=== PATIENT | female | born 1935 | race Caucasian/White ===

== ENCOUNTER 2021-06-09 01:19 | Outpatient (CLI) | payer MEDICARE, OTHER, SELFPAY ==
[2021-06-09 12:35] LABS: Source Nasal/Nares
[2021-06-09 15:22] LABS: COVID-19 PCR Negative (Negative)
== END 2021-06-09 01:20 | disposition home or self-care (01) ==
LOC: LBO 01:19
PROVIDERS: PCP Internal Medicine; Visit Provider Ophthalmology
DX: Z20.822 Contact with and (suspected) exposure to COVID-19 (principal); Z01.818 Encounter for other preprocedural examination
CPT/HCPCS: 87635

== ENCOUNTER 2021-06-11 09:19 | Day surgery (SDC) | payer MEDICARE, OTHER, SELFPAY ==
[2021-06-11 09:45] VITALS: BP 139/70; PULSE 90; RESP 18; TEMP 36.4; O2SAT 99
[2021-06-11] MEDS: Tropicam./Phenyleph. (1/2.5%) 5 ML BTL OD ×3 (10:21→10:28)
--- NOTE | 2021-06-11 11:12 | ANES.PREOP_ITS ---
General Info Date of Service Date Performed: 06/11/21 Height: 5 ft 2 in Weight: 76.7 kg Body Mass Index (BMI): 30.9 Surgical Procedure: Operation Date: 06/11/21 12:40 Proposed Procedures Side Surgeon p Cataract Extraction with IOL Implant Right Sanchez Briggs MD Meds Allergies and Home Medications Allergies Allergy/AdvReac Type Severity Reaction Status Date / Time Penicillins Allergy Intermediate Other (See Unverified 06/11/21 10:03 Comment) Sulfa (Sulfonamide Allergy Intermediate Other (See Unverified 06/11/21 10:03 Antibiotics) Comment) iodine Allergy Unknown Unknown Unverified 06/11/21 10:03 lisinopril Allergy Unknown Unknown Unverified 06/11/21 10:03 meloxicam Allergy Unknown Unknown Unverified 06/11/21 10:03 Lkywzrh-FMM-PtU Reductase Allergy Unknown Unknown Unverified 06/11/21 10:03 Inhibitor [Pbftmmo-Gxq-Aia Reductase Inhibitor] Home Medication Medication Instructions Recorded aspirin [Low Dose Aspirin Ec] 81 mg PO DAILY tab-cap NS 09/23/16 furosemide 20 mg PO BID tab-cap NS 09/23/16 metoprolol tartrate 100 mg PO BID tab-cap NS 09/23/16 omeprazole 20 mg PO DAILY tab-cap NS 09/23/16 sertraline 50 mg PO PRN NS 09/23/16 Lactobacillus acidophilus 10 cell PO DAILY 06/09/21 [Probiotic] albuterol 90 mcg INHALATION Q4H 06/09/21 apixaban [Eliquis] 5 mg PO BID 06/09/21 cholecalciferol (vitamin D3) 50 mcg PO DAILY 06/09/21 [Vitamin D3] cranberry 500 mg PO DAILY 06/09/21 digoxin 62.5 mcg PO DAILY 06/09/21 estradiol 1 appful VAGINAL DIRECTED 06/09/21 famotidine 20 mg PO BID 06/09/21 fenofibrate micronized 134 mg PO DAILY 06/09/21 fluticasone propionate 1 spray INTRANASAL DAILY 06/09/21 fluticasone propionate [Flovent 1 puff INHALATION BID 06/09/21 HFA] letrozole 2.5 mg PO DAILY 06/09/21 levothyroxine 125 mcg PO DAILY 06/09/21 loratadine 10 mg PO DAILY 06/09/21 meclizine 25 mg PO TID 06/09/21 ondansetron HCl 4 mg PO BID PRN 06/09/21 pyridoxine (vitamin B6) [Vitamin 100 mg PO DAILY 06/09/21 B-6] ropinirole 0.5 mg PO TID 06/09/21 spironolactone 50 mg PO DAILY 06/09/21 tiotropium bromide [Spiriva 2 puff INHALATION DAILY 06/09/21 Respimat] vitamins A,C,E-rkqq-nldflt 1 cap PO BID 06/09/21 [PreserVision AREDS] Current Visit Medications: Current Medications Generic Name Dose Route Start Last Admin Trade Name Freq PRN Reason Stop Dose Admin Acetaminophen 1,000 mg 06/11/21 06:00 Acetaminophen 500 Mg Tab PO Q4H PRN PRN Miscellaneous Medication 0 ml 06/11/21 06:00 Prednisolone 1%, Moxifloxacin 0.5%, Nepafenac 0.1% 5ml Btl OD DIRECTED NATALIE Miscellaneous Medication 0 ml 06/11/21 06:00 06/11/21 10:28 Tropicam./Phenyleph. (1/2.5%) 5 Ml Btl OD 1 drp DIRECTED NATALIE Administration Tetracaine HCl 0 ml 06/11/21 06:00 Tetracaine 0.5% 4 Ml Btl OD DIRECTED NATALIE PFSH Active Problems Active Problems: Problem Status Onset Code Nuclear sclerotic cataract of right eye H25.11 Cortical cataract of right eye H26.9 Medical History Medical History Anxiety Atrial fibrillation Atrophic vaginitis Carpal tunnel syndrome CHF (congestive heart failure) Chronic post-traumatic stress disorder (PTSD) Chronic rhinitis CKD (chronic kidney disease) COPD (chronic obstructive pulmonary disease) Coronary atherosclerosis Diarrhea Dysphagia Edema ESR raised Female stress incontinence GERD (gastroesophageal reflux disease) Herpes zoster Hx of Clostridium difficile infection Hypercholesteremia Hypertensive disorder Hypothyroidism Macrocytosis Malignant tumor of breast Mitral valve regurgitation moderate last echo 08/2019 EF 64%, mild LVH. Pt. states she f/u with Dr. Bolanos Neuropathy due to type 2 diabetes mellitus GUERLINE (obstructive sleep apnea) Osteoarthritis Painless rectal bleeding Peptic ulcer Polyp of colon Posterior rhinorrhea Recurrent urinary tract infection RLS (restless legs syndrome) Shoulder pain Type 2 diabetes mellitus Venous insufficiency of leg Surgical History Surgical History H/O parathyroidectomy History of vascular surgery Hx of cardiac catheterization 2017 Hx of cholecystectomy Hx of dilation and curettage Hx of hernia repair Hx of joint replacement (L) GAL Hx of mastectomy Tobacco Smoking/Tobacco Use Status: Former Tobacco Use Alcohol Alcohol Intake: current Alcohol intake frequency: a few times a month Alcohol type: hard liquor Substance Use Substance use: Never Substance use type: does not use Vital Signs and Lab Results Vital Signs Most Recent Vital Signs in EMR: Most Recent Vital Signs Temp Pulse Resp BP Pulse Ox 36.4 C L 90 18 139/70 99 06/11/21 09:45 06/11/21 09:45 06/11/21 09:45 06/11/21 09:45 06/11/21 09:45 Lab Results Blood Type / Crossmatch: No Data to Display Complete Blood Count: No Data to Display Complete Metabolic Panel: No Data to Display Liver Function Panel: No Data to Display Coagulation Panel: No Data to Display Cardiac Panel: No Data to Display Arterial Blood Gas: No Data to Display Venous Blood Gas: No Data to Display Pancreas Panel: No Data to Display Thyroid Panel: No Data to Display Infectious Disease: Coronavirus (COVID-19)(PCR) Negative (Negative) 06/09/21 09:15 06/09/21 Coronavirus 2019 Source Nasal/Nares 06/09/21 09:15 06/09/21 Blood Cultures: 2 No Data to Display Toxicology Panel: No Data to Display Anesthesia Assessment and Plan Anesthesia History Personal History: No History of Anesthesia Complications Family History: No Family History of Anesthesia Complications Exercise Tolerance Exercise Tolerance: Metabolic Equivalents>4 Pertinent Negatives Pertinent Negatives: No Major Pulmonary Symptoms or Complaints Cardiac & Pulmonary Exam Cardiac Exam: Normal S1/S2 Heart Sounds Pulmonary Exam: Clear Bilateral Breath Sounds Implantable Cardiac Device Does patient have a Pacemaker or an ICD?: No Airway Exam Known Difficult Airway: No Mallampati Class: 2 Mouth Opening: Normal (> 3cm) Thyromental Distance: Less than 3 cm Neck Range of Motion: Full ROM Neck Circumference: Normal Teeth Condition: Edentulous ASA Classification ASA Score: ASA 3 Emergency Case?: No NPO Status NPO Status: NPO Clears >2 hours, Solids >8 hours Anesthesia Plan Resuscitation Status: Full Code Anesthesia Technique: MAC Anesthesia Airway Planned: Natural Airway Monitors Used: Standard Monitors
[2021-06-11] MEDS: Povidone-Iodine Ophth 30 ML BTL (11:42)
[2021-06-11] MEDS: Lidocaine 2% Jelly 6 ML SYR (11:42)
[2021-06-11] MEDS: Tetracaine 0.5% 4 ML BTL OD (11:42)
[2021-06-11 11:44] VITALS: BMI 30.9
[2021-06-11] MEDS: Duovisc Viscoelastic System EACH 1 EACH (11:55)
[2021-06-11] MEDS: Balanced Salt Soln.-PLUS 500 ML BAG (11:55)
--- NOTE | 2021-06-11 12:06 | W.PM.DSUDISC ---
Discharge Plan Disposition Patient Disposition: HOME Condition: Good Discharge Details Reason For Visit: CATARACT Attending Provider: Sanchez Briggs Primary Care Provider: Glendy Gonzales Home Meds and New Rx's Prescriptions: No Action furosemide 40 MG tablet 20 mg PO BID RF: 0 aspirin [Aspirin Low Dose] 81 MG tablet,delayed release (DR/EC) 81 mg PO DAILY RF: 0 metoprolol tartrate 50 MG tablet 100 mg PO BID RF: 0 omeprazole 20 MG capsule,delayed release(DR/EC) 20 mg PO DAILY RF: 0 sertraline 50 MG tablet 50 mg PO PRN RF: 0 ondansetron HCl 4 mg tablet 4 mg PO BID PRNRF: 0 fenofibrate micronized 134 mg capsule 134 mg PO DAILY RF: 0 famotidine 20 mg tablet 20 mg PO BID RF: 0 meclizine 25 mg Tablet 25 mg PO TID RF: 0 levothyroxine 125 mcg Tablet 125 mcg PO DAILY RF: 0 ropinirole 0.5 mg tablet 0.5 mg PO TID RF: 0 digoxin 125 mcg (0.125 mg) tablet 62.5 mcg PO DAILY RF: 0 pyridoxine (vitamin B6) [Vitamin B-6] 100 mg Tablet 100 mg PO DAILY RF: 0 albuterol 90 mcg/actuation Aerosol 90 mcg INHALATION Q4H RF: 0 estradiol 0.01 % (0.1 mg/gram) cream 1 appful VAGINAL DIRECTED RF: 0 letrozole 2.5 mg tablet 2.5 mg PO DAILY RF: 0 fluticasone propionate 50 mcg/actuation [place],Suspension 1 spray INTRANASAL DAILY RF: 0 loratadine 10 mg Tablet 10 mg PO DAILY RF: 0 cranberry 500 mg Capsule 500 mg PO DAILY RF: 0 Flovent HFA 110 mcg/actuation HFA aerosol inhaler 1 puff INHALATION BID RF: 0 spironolactone 50 mg tablet 50 mg PO DAILY RF: 0 PreserVision AREDS [id number] Capsule 1 cap PO BID RF: 0 cholecalciferol (vitamin D3) [Vitamin D3] 50 mcg (2,000 unit) Capsule 50 mcg PO DAILY RF: 0 Spiriva Respimat 2.5 mcg/actuation Mist 2 puff INHALATION DAILY RF: 0 Probiotic 10 billion cell Capsule 10 cell PO DAILY RF: 0 Eliquis 5 mg tablet 5 mg PO BID RF: 0 Discharge Instructions Stand Alone Forms: Post-op Topical Cataract, Leon Culver (DSU) Discharge Orders Discharge Orders: Discharge Order (Routine); Ordered 06/11/21 Ordered By: Sanchez Briggs DS: Diagnosis Discharge Diagnosis (1) Nuclear sclerotic cataract of right eye: Status: Resolved (2) Cortical cataract of right eye: Status: Resolved
--- NOTE | 2021-06-11 12:27 | W.PM.OP ---
Date of service: 06/11/21 Time of Service: 12:27 Operative Note Operative Note DATE OF PROCEDURE: 06/11/21 PRE-OP DIAGNOSIS: Nuclear/cortical cataract, right eye POST-OP DIAGNOSIS: same PROCEDURE: Cataract extraction using phacoemulsification with intraocular lens implant, right eye SURGEON: Sanchez Briggs ANESTHESIA TYPE: Local By Surgeon and MAC Refer to Anesthesia Record ESTIMATED BLOOD LOSS: 0 PATHOLOGY: none sent COMPLICATIONS: None Patient was transported to: same day Patient's condition: stable Implants: Jan & Jan/DARRION Tecnis [id number] Indications: Progressive visual loss due to cataract, right eye Procedure Description: CATARACT SURGERY OPERATIVE REPORT PREOPERATIVE DIAGNOSIS: 1. Nuclear/cortical cataract, right eye POSTOPERATIVE DIAGNOSIS: Same OPERATION: 1. Cataract extraction using phacoemulsification with posterior chamber intraocular lens implant, right eye. IOL: IOL Utility Pipe Layer/Model: Jan & Jan / DARRION Tecnis [id number] IOL Power: + 20.5 diopters IOL Serial Number: [id number] Optic Diameter: 6.0mm Haptic/Overall Diameter: 13.0mm PHACO INFO: [employer] Microurion Vision System with OZil and Active Fluidics Cumulative Dispersed Energy (CDE): 9.48 seconds SURGEON: Sanchez Briggs MD, THUY ANESTHESIA: Monitored Anesthesia Care (MAC), with local sub-tenon's anesthetic infiltration COMPLICATIONS: None SPECIMENS: None INDICATIONS FOR PROCEDURE: The patient is an 85-year-old lady with history of diminished visual acuity in her right eye secondary to the development of nuclear and cortical cataract. She is significantly symptomatic that she desires cataract surgery and attempt to improve and maximize her vision. PROCEDURE: The correct surgical eye was identified and marked as the right eye and the pupil was dilated in the preoperative area using mydriatics and cycloplegics. The dilated pupil size was 7.0 mm. Oral sedation was administered in the form of an Imprimis MKO Melt (midazolam 3mg/ketamine 25mg/ondansetron 2mg). The patient was brought to the operating room where cardiopulmonary monitoring was instituted and surgical time-out was performed, confirming the correct operative eye and IOL power. Topical anesthesia was administered and ophthalmic povidone-iodine 5% was instilled into the conjunctival fornices. Lidocaine gel was applied to the cornea and the ava-ocular area was prepped with Betadine 10% solution and draped in the usual sterile fashion for intraocular surgery, including an aperture drape. A Tegaderm transparent film dressing was cut in half and used to cover the lashes and lid margins. Care was taken to sequester the lashes and lid margins under the Tegaderm dressing. A lid speculum was placed between the lids of the operative eye and the Jalen-Roxy operating microscope was maneuvered into position. Jasmine scissors were then used to make a conjunctival buttonhole approximately 6mm posterior to the limbus in the inferonasal quadrant. Blunt dissection was carried out to expose bare sclera, and a blunt-tipped sub-tenon?s anesthesia cannula was introduced and passed posteriorly along the globe where non-preserved plain lidocaine was injected into posterior sub-Tenon?s space. A sideport knife was used to make a paracentesis port inferotemporally. Intraocular phenylephrine/lidocaine was injected into the anterior chamber. The anterior chamber was filled with viscoelastic. A 2.4mm keratome knife was used to create a half-thickness groove at the limbus and then to construct a three-plane near-clear corneal tunnel extending 2.0mm into clear cornea superiortemporally. A flap was raised on the anterior capsule and capsulorhexis forceps were used to complete a continuous curvilinear capsulorhexis of 5.0 mm. Balanced salt solution was then used to perform cortical cleaving hydrodissection and nuclear hydrodelineation until the lens could be freely rotated within the capsular bag. The lens nucleus was then disassembled and removed within the capsular bag and iris plane using phacoemulsification. Residual cortical material was removed using the I/A handpiece. The posterior capsule was carefully polished to remove as much residual lens epithelial cells as safely possible. The capsular bag was then inflated and the anterior chamber deepened with viscoelastic. The lens implant described above was inserted into the capsular bag using the DARRION [place] Injector. A Kuglen hook was used to dial the IOL into position. Residual viscoelastic was then removed first from posterior to the IOL, then from the anterior chamber using the I/A handpiece. The lens implant was noted to center nicely within the capsular bag. The incisions were stromally hydrated, and the anterior chamber was reformed using BSS. Then 0.5cc of moxifloxacin 1.0mg/ml were injected into the capsular bag and anterior chamber. The incisions were checked with a Weck spear and found to be secure. Several drops of ophthalmic povidone-iodine 5% were then applied to the eye followed by two drops of Imprimis combination prednisolone/moxifloxacin/nepafenac solution. The drapes were removed and a clear plastic protective eye shield was placed over the eye. The patient was then returned to Same Day Surgery in stable condition.
[2021-06-11 12:38] VITALS: BP 112/86; PULSE 87; RESP 16; TEMP 36.4; O2SAT 98
--- NOTE | 2021-06-11 14:04 | W.ANESPOSTOP ---
Postoperative Evaluation Date, Time and Location Date Performed: 06/11/21 Time Performed: 12:40 Patient Location: Day Surgery Unit Vital Signs Most Recent Imported Vital Signs: Most Recent Vital Signs Temp Pulse Resp BP Pulse Ox 36.4 C L 87 16 112/86 98 06/11/21 12:38 06/11/21 12:38 06/11/21 12:38 06/11/21 12:38 06/11/21 12:38 Pain Score Most Recent Pain Score: Most Recent Pain Score Pain Level 0 06/11/21 12:38 Assessment Mental Status: Awake (Alert & Oriented to Patient Baseline) Airway and Respiratory Function: Patent airway with normal (patient baseline) respiratory exam Cardiovascular Function: Hemodynamically Stable Hydration Status: Adequately Hydrated Nausea & Vomiting: No Nausea or Vomiting Pain: Pt. Denies Any Pain Peripheral Nerve Block: Patient did not receive a nerve block
== END 2021-06-11 12:38 | disposition home or self-care (01) ==
PROVIDERS: PCP Internal Medicine; Visit Provider Ophthalmology
PROC: (CPT 66984; principal; 2021-06-11 12:30)
DX: H25.11 Age-related nuclear cataract, right eye (principal); E11.22 Type 2 diabetes mellitus with diabetic chronic kidney disease; I87.2 Venous insufficiency (chronic) (peripheral); N18.9 Chronic kidney disease, unspecified; I13.0 Hypertensive heart and chronic kidney disease with heart failure and stage 1 through stage 4 chronic kidney disease, or unspecified chronic kidney disease; I50.9 Heart failure, unspecified
CPT/HCPCS: 66984; V2632

== ENCOUNTER 2021-06-22 10:38 | Outpatient (CLI) | payer MEDICARE, OTHER, SELFPAY ==
[2021-06-22 12:03] LABS: Source Nasal/Nares
[2021-06-22 19:15] LABS: COVID-19 PCR Negative (Negative)
== END 2021-06-22 10:39 | disposition home or self-care (01) ==
PROVIDERS: PCP Internal Medicine; Visit Provider Ophthalmology
DX: Z20.822 Contact with and (suspected) exposure to COVID-19 (principal); Z01.818 Encounter for other preprocedural examination
CPT/HCPCS: 87635

== ENCOUNTER 2021-06-25 10:18 | Day surgery (SDC) | payer MEDICARE, OTHER, SELFPAY ==
[2021-06-25 10:36] VITALS: BP 129/50; PULSE 103; RESP 20; TEMP 36.6; O2SAT 100
[2021-06-25] MEDS: Tropicam./Phenyleph. (1/2.5%) 5 ML BTL OS ×3 (11:07→11:23)
--- NOTE | 2021-06-25 12:10 | ANES.PREOP_ITS ---
General Info Date of Service Date Performed: 06/25/21 Height: 5 ft 2 in Weight: 77.4 kg Body Mass Index (BMI): 31.1 Surgical Procedure: Operation Date: 06/25/21 12:10 Proposed Procedure Side Surgeon p Cataract Extraction with IOL Implant Left Sanchez Briggs MD Meds Allergies and Home Medications Allergies Allergy/AdvReac Type Severity Reaction Status Date / Time Penicillins Allergy Intermediate Other (See Verified 06/25/21 10:55 Comment) Sulfa (Sulfonamide Allergy Intermediate Other (See Verified 06/25/21 10:55 Antibiotics) Comment) iodine Allergy Unknown Unknown Verified 06/25/21 10:55 lisinopril Allergy Unknown Unknown Verified 06/25/21 11:06 meloxicam Allergy Unknown Unknown Verified 06/25/21 10:55 Vshgvjj-CCU-LvV Reductase Allergy Unknown Unknown Verified 06/25/21 10:55 Inhibitor [Keyvlkc-Ici-Llc Reductase Inhibitor] Home Medication Medication Instructions Recorded furosemide 40 mg tablet 20 mg PO BID tab-cap NS 09/23/16 metoprolol tartrate 50 mg tablet 100 mg PO BID tab-cap NS 09/23/16 omeprazole 20 mg capsule,delayed 20 mg PO DAILY tab-cap NS 09/23/16 release sertraline 50 mg tablet 50 mg PO PRN NS 09/23/16 Lactobacillus acidophilus 10 10 cell PO DAILY 06/09/21 billion cell capsule (Probiotic) albuterol 90 mcg/actuation aerosol 90 mcg INHALATION Q4H 06/09/21 inhaler apixaban 5 mg tablet (Eliquis) 5 mg PO BID 06/09/21 cholecalciferol (vitamin D3) 50 50 mcg PO DAILY 06/09/21 mcg (2,000 unit) capsule (Vitamin D3) cranberry 500 mg capsule 500 mg PO DAILY 06/09/21 digoxin 125 mcg (0.125 mg) tablet 62.5 mcg PO DAILY 06/09/21 estradiol 1 appful VAGINAL DIRECTED 06/09/21 famotidine 20 mg tablet 20 mg PO BID 06/09/21 fenofibrate micronized 134 mg 134 mg PO DAILY 06/09/21 capsule fluticasone propionate 110 1 puff INHALATION BID 06/09/21 mcg/actuation HFA aerosol inhaler (Flovent HFA) fluticasone propionate 50 1 spray INTRANASAL DAILY 06/09/21 mcg/actuation nasal spray,suspension letrozole 2.5 mg tablet 2.5 mg PO DAILY 06/09/21 levothyroxine 125 mcg tablet 125 mcg PO DAILY 06/09/21 loratadine 10 mg tablet 10 mg PO DAILY 06/09/21 meclizine 25 mg tablet 25 mg PO TID 06/09/21 ondansetron HCl 4 mg tablet 4 mg PO BID PRN 06/09/21 pyridoxine (vitamin B6) 100 mg 100 mg PO DAILY 06/09/21 tablet (Vitamin B-6) ropinirole 0.5 mg tablet 0.5 mg PO TID 06/09/21 spironolactone 50 mg tablet 50 mg PO DAILY 06/09/21 tiotropium bromide 2.5 2 puff INHALATION DAILY 06/09/21 mcg/actuation mist for inhalation (Spiriva Respimat) vitamins A,C,D-wylp-qowkrh 14,320 1 cap PO BID 06/09/21 unit-226 mg-200 unit capsule (PreserVision AREDS) Current Visit Medications: Current Medications Generic Name Dose Route Start Last Admin Trade Name Freq PRN Reason Stop Dose Admin Acetaminophen 1,000 mg 06/25/21 06:00 Acetaminophen 500 Mg Tab PO Q4H PRN PRN Miscellaneous Medication 0 ml 06/25/21 06:00 Prednisolone 1%, Moxifloxacin 0.5%, Nepafenac 0.1% 5ml Btl OS DIRECTED [facility] Miscellaneous Medication 0 ml 06/25/21 06:00 06/25/21 11:23 Tropicam./Phenyleph. (1/2.5%) 5 Ml Btl OS 1 drp DIRECTED NATALIE Administration Tetracaine HCl 0 ml 06/25/21 06:00 Tetracaine 0.5% 4 Ml Btl OS DIRECTED [facility] PFSH Active Problems Active Problems: Problem Status Onset Code Nuclear sclerotic cataract of right eye H25.11 Cortical cataract of right eye H26.9 Medical History Medical History Anxiety Atrial fibrillation Atrophic vaginitis Carpal tunnel syndrome CHF (congestive heart failure) Chronic post-traumatic stress disorder (PTSD) Chronic rhinitis CKD (chronic kidney disease) COPD (chronic obstructive pulmonary disease) Coronary atherosclerosis Diarrhea Dysphagia Edema ESR raised Female stress incontinence GERD (gastroesophageal reflux disease) Herpes zoster Hx of Clostridium difficile infection Hypercholesteremia Hypertensive disorder Hypothyroidism Macrocytosis Malignant tumor of breast Mitral valve regurgitation moderate last echo 08/2019 EF 64%, mild LVH. Pt. states she f/u with Dr. Bolanos Neuropathy due to type 2 diabetes mellitus GUERLINE (obstructive sleep apnea) Osteoarthritis Painless rectal bleeding Peptic ulcer Polyp of colon Posterior rhinorrhea Recurrent urinary tract infection RLS (restless legs syndrome) Shoulder pain Type 2 diabetes mellitus Venous insufficiency of leg Surgical History Surgical History H/O parathyroidectomy History of vascular surgery Hx of cardiac catheterization 2017 Hx of cholecystectomy Hx of dilation and curettage Hx of hernia repair Hx of joint replacement (L) GAL Hx of mastectomy Tobacco Smoking/Tobacco Use Status: Former Tobacco Use Alcohol Alcohol Intake: current Alcohol intake frequency: a few times a month Alcohol type: hard liquor Substance Use Substance use: Never Substance use type: does not use Vital Signs and Lab Results Vital Signs Most Recent Vital Signs in EMR: Most Recent Vital Signs Temp Pulse Resp BP Pulse Ox 36.6 C 103 H 20 129/50 L 100 06/25/21 10:36 06/25/21 10:36 06/25/21 10:36 06/25/21 10:36 06/25/21 10:36 Point of Care Results Point of Care Results: Finger Stick Blood Glucose 107 06/25/21 11:23 Lab Results Blood Type / Crossmatch: No Data to Display Complete Blood Count: No Data to Display Complete Metabolic Panel: No Data to Display Liver Function Panel: No Data to Display Coagulation Panel: No Data to Display Cardiac Panel: No Data to Display Arterial Blood Gas: No Data to Display Venous Blood Gas: No Data to Display Pancreas Panel: No Data to Display Thyroid Panel: No Data to Display Infectious Disease: Coronavirus (COVID-19)(PCR) Negative (Negative) 06/22/21 10:35 06/22/21 Coronavirus 2019 Source Nasal/Nares 06/22/21 10:35 06/22/21 Blood Cultures: No Data to Display Toxicology Panel: No Data to Display Imaging and Studies Imaging and Studies Study information below may be from another EMR and interpreted by another provider. Please see original notes in EMR for more complete details. [place]ch[place]ogram [place] [facility] [place] Mild [place]/TR/MO, Moderate MR. Pulmonary Artery moderatel ydilated at 2.6cms. Grade II Diastolic dysfunction. Anesthesia Assessment and Plan Anesthesia History Personal History: No History of Anesthesia Complications Family History: No Family History of Anesthesia Complications Exercise Tolerance Exercise Tolerance: Metabolic Equivalents>4 Pertinent Negatives Pertinent Negatives: No Symptoms of GERD Cardiac & Pulmonary Exam Cardiac Exam: Normal S1/S2 Heart Sounds Pulmonary Exam: Clear Bilateral Breath Sounds Implantable Cardiac Device Does patient have a Pacemaker or an ICD?: No Airway Exam Known Difficult Airway: No Mallampati Class: 2 Mouth Opening: Normal (> 3cm) Thyromental Distance: Less than 3 cm Neck Range of Motion: Full ROM Neck Circumference: Normal Teeth Condition: Edentulous ASA Classification ASA Score: ASA 3 Emergency Case?: No NPO Status NPO Status: NPO Clears >2 hours, Solids >8 hours Anesthesia Plan Resuscitation Status: Full Code Anesthesia Technique: MAC Anesthesia Airway Planned: Natural Airway Monitors Used: Standard Monitors
[2021-06-25] MEDS: Tetracaine 0.5% 4 ML BTL OS (12:22)
[2021-06-25] MEDS: Lidocaine 2% Jelly 6 ML SYR (12:23)
[2021-06-25 12:29] VITALS: BMI 31.1
[2021-06-25] MEDS: Duovisc Viscoelastic System EACH 1 EACH (12:33)
[2021-06-25] MEDS: Balanced Salt Soln.-PLUS 500 ML BAG (12:33)
[2021-06-25] MEDS: Povidone-Iodine Ophth 30 ML BTL (12:36)
[2021-06-25 12:49] VITALS: BP 128/64; PULSE 64; RESP 16; TEMP 36.5; O2SAT 98
--- NOTE | 2021-06-25 12:51 | PDOC.DSDIS_ITS ---
Discharge Plan Disposition Patient Disposition: HOME Condition: Good Discharge Details Attending Provider: Sanchez Briggs Primary Care Provider: Glendy Gonzales Meds and New Rx's Prescriptions: No Action furosemide 40 MG tablet 20 mg PO BID 0RF Rx Instructions: every morning and after lunch as needed for CHF symptoms metoprolol tartrate 50 MG tablet 100 mg PO BID 0RF omeprazole 20 MG capsule,delayed release(DR/EC) 20 mg PO DAILY 0RF sertraline 50 MG tablet 50 mg PO PRN 0RF ondansetron HCl 4 mg tablet 4 mg PO BID PRN0RF Label Comments: TAKE ONE TABLET BY MOUTH TWICE A DAY NEEDED fenofibrate micronized 134 mg capsule 134 mg PO DAILY 0RF Label Comments: TAKE ONE CAPSULE BY MOUTH EVERY DAY famotidine 20 mg tablet 20 mg PO BID 0RF Label Comments: TAKE ONE TABLET BY MOUTH TWICE A DAY meclizine 25 mg Tablet 25 mg PO TID 0RF levothyroxine 125 mcg Tablet 125 mcg PO DAILY 0RF ropinirole 0.5 mg tablet 0.5 mg PO TID 0RF Label Comments: TAKE ONE TABLET BY MOUTH THREE TIMES A DAY FOR RESTLESS LEGS SYNDROME digoxin 125 mcg (0.125 mg) tablet 62.5 mcg PO DAILY 0RF Label Comments: TAKE ONE AND ONE-HALF TABLETS BY MOUTH EVERY DAY pyridoxine (vitamin B6) [Vitamin B-6] 100 mg Tablet 100 mg PO DAILY 0RF albuterol 90 mcg/actuation Aerosol 90 mcg INHALATION Q4H 0RF Rx Instructions: 2 puff q4h prn estradiol 0.01 % (0.1 mg/gram) cream 1 appful VAGINAL DIRECTED 0RF Label Comments: USE ONE APPLICATORFUL VAGINALLY DIRECTED THREE TIMES PER WEEK Rx Instructions: 3x weekly letrozole 2.5 mg tablet 2.5 mg PO DAILY 0RF Label Comments: TAKE ONE TABLET BY MOUTH EVERY DAY fluticasone propionate 50 mcg/actuation [place],Suspension 1 spray INTRANASAL DAILY 0RF loratadine 10 mg Tablet 10 mg PO DAILY 0RF cranberry 500 mg Capsule 500 mg PO DAILY 0RF Flovent HFA 110 mcg/actuation HFA aerosol inhaler 1 puff INHALATION BID 0RF Label Comments: INHALE ONE PUFF BY MOUTH TWICE A DAY spironolactone 50 mg tablet 50 mg PO DAILY 0RF Label Comments: TAKE ONE TABLET BY MOUTH EVERY MORNING PreserVision AREDS [id number] Capsule 1 cap PO BID 0RF cholecalciferol (vitamin D3) [Vitamin D3] 50 mcg (2,000 unit) Capsule 50 mcg PO DAILY 0RF Spiriva Respimat 2.5 mcg/actuation Mist 2 puff INHALATION DAILY 0RF Probiotic 10 billion cell Capsule 10 cell PO DAILY 0RF Eliquis 5 mg tablet 5 mg PO BID 0RF Label Comments: TAKE ONE TABLET BY MOUTH TWICE A DAY Discharge Instructions Stand Alone Forms: Post-op Topical Cataract, Leon Culver (DSU) Discharge Orders Discharge Orders: Discharge Order (Routine); Ordered 06/25/21 Ordered By: Sanchez Briggs DS: Diagnosis Discharge Diagnosis (1) Cortical cataract of left eye: Status: Resolved (2) Nuclear sclerotic cataract of left eye: Status: Resolved
--- NOTE | 2021-06-25 12:53 | W.PM.OP ---
Date of service: 06/25/21 Time of Service: 12:53 Operative Note Operative Note DATE OF PROCEDURE: 06/25/21 PRE-OP DIAGNOSIS: Nuclear/cortical cataract, left eye POST-OP DIAGNOSIS: same PROCEDURE: Cataract extraction using phacoemulsification with intraocular lens implant, left eye SURGEON: Sanchez Briggs ANESTHESIA TYPE: Local By Surgeon and MAC Refer to Anesthesia Record PATHOLOGY: none sent COMPLICATIONS: None Patient was transported to: same day Patient's condition: stable Implants: Jan [employer] Jan / [employer] Tecnis [id number] Indications: Progressive decreased vision due to cataract, left eye Procedure Description: CATARACT SURGERY OPERATIVE REPORT PREOPERATIVE DIAGNOSIS: 1. Nuclear/cortical cataract, left eye POSTOPERATIVE DIAGNOSIS: Same OPERATION: 1. Cataract extraction using phacoemulsification with posterior chamber intraocular lens implant, left eye. IOL: IOL Sports Development Officer/Model: Jan & Jan / DARRION Tecnis [id number] IOL Power: + 19.5 diopters IOL Serial Number: [id number] Optic Diameter: 6.0 mm Haptic/Overall Diameter: 13.0 mm PHACO INFO: [employer] Vision System with OZil and Active Fluidics Cumulative Dispersed Energy (CDE): 7.56 seconds SURGEON: Sanchez rBiggs MD, THUY ANESTHESIA: Monitored A [facility] (MAC), with local sub-tenon's anesthetic infiltration COMPLICATIONS: None SPECIMENS: None INDICATIONS FOR PROCEDURE: The patient is an 85-year-old lady with history of diminished visual acuity in her left eye secondary to the development of nuclear/cortical cataract. The option of cataract surgery was offered to the patient and she felt she was symptomatic enough that she wished to proceed. She has already undergone cataract surgery in the right eye and now presents for cataract surgery in the left eye. PROCEDURE: The correct surgical eye was identified and marked as the left eye and the pupil was dilated in the preoperative area using mydriatics and cycloplegics. The dilated pupil size was 7.0 mm. She elected to proceed without oral sedation. The patient was brought to the operating room where cardiopulmonary monitoring was instituted and surgical time-out was performed, confirming the correct operative eye and IOL power. Topical anesthesia was administered and ophthalmic povidone-iodine 5% was instilled into the conjunctival fornices. Lidocaine gel was applied to the cornea and the ava-ocular area was prepped with Betadine 10% solution and draped in the usual sterile fashion for intraocular surgery, including an aperture drape. A Tegaderm transparent film dressing was cut in half and used to cover the lashes and lid margins. Care was taken to sequester the lashes and lid margins under the Tegaderm dressing. A lid speculum was placed between the lids of the operative eye and the Garry Lux[employer] Revalia operating microscope was maneuvered into position. Jasmine scissors were then used to make a conjunctival buttonhole approximately 6mm posterior to the limbus in the inferonasal quadrant. Blunt dissection was carried out to expose bare sclera, and a blunt-tipped sub-tenon?s anesthesia cannula was introduced and passed posteriorly along the globe where non-preserved plain lidocaine was injected into posterior sub-Tenon?s space. A sideport knife was used to make a paracentesis port superiorly/superiortemporally. Intraocular phenylephrine/lidocaine was injected int the anterior chamber.. The anterior chamber was filled with viscoelastic. A 2.4mm keratome knife was used to create a half-thickness groove at the limbus and then to construct a three-plane near-clear corneal tunnel extending 2.0mm into clear cornea at the 3:00 position. A flap was raised on the anterior capsule and capsulorhexis forceps were used to complete a continuous curvilinear capsulorhexis of 5.5 mm. Balanced salt solution was then used to perform cortical cleaving hydrodissection and nuclear hydrodelineation until the lens could be freely rotated within the capsular bag. The lens nucleus was then disassembled and removed within the capsular bag and iris plane using phacoemulsification. Residual cortical material was removed using the 45-degree angled silicone I/A tip with 0.3mm port. The posterior capsule was carefully polished to remove as much residual lens epithelial cells as safely possible. The capsular bag was then inflated and the anterior chamber deepened with viscoelastic. The lens implant described above was inserted into the capsular bag using the DARRION [place] Injector. A Kuglen hook was used to dial the IOL into position. Residual viscoelastic was then removed first from posterior to the IOL, then from the anterior chamber using the I/A handpiece. The lens implant was noted to center nicely within the capsular bag. The incisions were stromally hydrated, and the anterior chamber was reformed using BSS. Then 0.5cc of moxifloxacin 1.0mg/ml were injected into the capsular bag and anterior chamber. The incisions were checked with a Weck spear and found to be secure. Several drops of ophthalmic povidone-iodine 5% were then applied to the eye followed by two drops of Imprimis combination prednisolone/moxifloxacin/nepafenac solution. The drapes were removed and a clear plastic protective eye shield was placed over the eye. The patient was then returned to Same Day Surgery in stable condition.
--- NOTE | 2021-06-25 12:58 | W.ANESPOSTOP ---
Postoperative Evaluation Date, Time and Location Date Performed: 06/25/21 Time Performed: 12:58 Patient Location: Day Surgery Unit Vital Signs Most Recent Imported Vital Signs: Most Recent Vital Signs Temp Pulse Resp BP Pulse Ox 36.5 C 64 16 128/64 98 06/25/21 12:49 06/25/21 12:49 06/25/21 12:49 06/25/21 12:49 06/25/21 12:49 Pain Score Most Recent Pain Score: Most Recent Pain Score Pain Level 0 06/25/21 12:49 Assessment Mental Status: Awake (Alert & Oriented to Patient Baseline) Airway and Respiratory Function: Patent airway with normal (patient baseline) respiratory exam Cardiovascular Function: Hemodynamically Stable Hydration Status: Adequately Hydrated Nausea & Vomiting: No Nausea or Vomiting Pain: Pt. Denies Any Pain Peripheral Nerve Block: Patient did not receive a nerve block
== END 2021-06-25 13:15 | disposition home or self-care (01) ==
PROVIDERS: PCP Internal Medicine; Visit Provider Ophthalmology
PROC: (CPT 66984; principal; 2021-06-25 12:00)
DX: H25.12 Age-related nuclear cataract, left eye (principal); E11.9 Type 2 diabetes mellitus without complications; I48.91 Unspecified atrial fibrillation; N18.9 Chronic kidney disease, unspecified; K21.9 Gastro-esophageal reflux disease without esophagitis; I50.9 Heart failure, unspecified; I13.0 Hypertensive heart and chronic kidney disease with heart failure and stage 1 through stage 4 chronic kidney disease, or unspecified chronic kidney disease; G47.33 Obstructive sleep apnea (adult) (pediatric)
CPT/HCPCS: 66984; V2632